=== PATIENT | female | born 1960 ===

== ENCOUNTER → 2016-11-27 | Day surgery (SDC) | payer OTHER ==
[2016-11-27] VITALS (12 sets, daily range): BP systolic 82–133; BP diastolic 16–79
[~2016-11-27] VITALS: Ht 157.5 cm; Wt 56.2 kg
[~2016-11-27] MED LIST: Alfentanil 2ml Inj ONE; Atropine Inj 1mg/10ml Syr IV PRN; Bupivacaine 0.25% Inj 30ml INJ ONE; Bupivacaine w/Epi 0.25% 30ml Vial INJ ONE; DiphenhydrAMINE 50mg/ml Inj IVP PRN; Duramorph PF 10mg/10ml amp IV ONE; GLIPIZIDE5 MG ORAL; Hydromorphone 0.5mg/0.5ml inj IVP PRN; Kenalog-40 1ml Vial ONE; Ketorolac 30mg Inj IV ONE; Ketorolac 30mg Inj IV PRN; Ketorolac 60mg Inj IV PRN; LANTUS SOL100 UNIT/1 SUBQ; LISINOPRIL10 MG ORAL; LORazepam Inj 2mg/ml 1ml IV PRN; LR 1000ml 1,000 ML IVLG SCH; LR 1000ml ONE; Labetalol 5mg/ml 20ml vial IV PRN; Lidocaine 1% 10mg/ml/Epi 0.005mg/ml 30ml vial INJ ONE; Lidocaine 1% MPF 10mg/ml 5ml ONE; METFORMIN HCL500 M1 ORAL; Meperidine 25mg/ml Inj IV PRN; Metoclopramide 10mg/2ml Inj IVP PRN; Midazolam 2mg/2ml Inj IVP PRN; Midazolam 2mg/2ml Inj ONE; Morphine Sulfate 2mg/ml Inj IVP PRN; Morphine Sulfate PF 10 ML ONE; NS Irrig 1000ml ONE; Norco 5mg/325mg tab ORAL PRN; Norco 7.5mg/325mg tab ORAL PRN; Oxycodone/Acetaminophen 5-325 ORAL PRN; Propofol 10mg/ml 20ml IV ONE; ceFAZolin 1gm/50ml Premix 50 ML IV ONE; celeBREX 200mg Cap **SURGERY PATIENTS ONLY ORAL ONE; fentaNYL 100 mcg/2 mL IV PRN; oxyCONTIN 20mg tab ORAL ONE
--- NOTE | 2016-11-27 06:48 | Anethesia Preoperative Eval ---
Anesthesia Pre-op PMH/ROS General Date of Evaluation: Nov 27, 2016 Time of Evaluation: 06:56 Anesthesiologist: Cleo ASA Score: ASA 3 Mallampati Score Class I : Soft palate, uvula, fauces, pillars visible Class II: Soft palate, uvula, fauces visible Class III: Soft palate, base of uvula visible Class IV: Only hard plate visible Mallampati Classification: Class I Surgeon: Colby Diagnosis: L Knee Pain Surgical Procedure: L Knee Arthroscopy Anesthesia History: none Family History: no anesthesia problems Allergies: Coded Allergies: No Known Allergies (Unverified , 11/25/16) Medications: see eMAR Past Medical History Endocrine: Reports: DM PSxH Narrative: YASEMIN Anesthesia Pre-op Phys. Exam Physician Exam Last Vital Signs Date Time Temp Pulse Resp B/P Pulse Ox O2 Delivery O2 Flow Rate FiO2 11/27/16 05:35 97.9 84 18 133/78 99 Room Air Constitutional: NAD Neurologic: CN 2-12 intact Cardiovascular: RRR Respiratory: CTA Gastrointestinal: S/NT/ND Airway Exam Mallampati Score: Class I MO: full ROM: full Teeth: intact Anesthesia Pre-op A/P Risk Assessment & Plan Assessment: ASA 3 Plan: GA, BIS Status Change Before Surgery: No Pre-Antibiotics Dru Grams Ancef IV Given Within 1 Hr of Incision: Yes Time Given: 07:11 Davis Gallo MD Nov 27, 2016 06:48
--- NOTE | 2016-11-27 06:53 | Immediate Post-Op Evaluation ---
Immediate Post-Op Evalulation Immediate Post-Op Evalulation Procedure: L Knee Arthroscopy Date of Evaluation: Nov 27, 2016 Time of Evaluation: 08:03 IV Fluids: 700 LR Blood Products: 0 Estimated Blood Loss: 12 Urinary Output: 0 Blood Pressure Systolic: 84 Blood Pressure Diastolic: 47 Pulse Rate: 82 Respiratory Rate: 16 O2 Sat by Pulse Oximetry: 99 Temperature (Fahrenheit): 97.3 Pain Score (1-10): 2 Nausea: No Vomiting: No Complications 0 Patient Status: awake, reacts, patent, extubated, none Hydration Status: adequate Dru Gram Ancef IV Given Within 1 Hr of Incision: Yes Time Given: 07:11 Davis Gallo MD Nov 27, 2016 06:53
--- NOTE | 2016-11-27 06:54 | 48 Hour Post Anesthesia Eval ---
Post Anesthesia Evaluation Procedure: L Knee Arthroscopy Date of Evaluation: Nov 27, 2016 Time of Evaluation: 10:24 Blood Pressure Systolic: 112 0: 74 Pulse Rate: 81 Respiratory Rate: 16 Temperature (Fahrenheit): 98.2 O2 Sat by Pulse Oximetry: 99 Airway: patent Nausea: No Vomiting: No Pain Intensity: 2 Hydration Status: adequate Cardiopulmonary Status: Stable Mental Status/LOC: patient returned to baseline Follow-up Care/Observations: 0 Post-Anesthesia Complications: 0 Follow-up care needed: ready to discharge Davis Gallo MD Nov 27, 2016 06:54
--- NOTE | 2016-11-27 07:07 | Pre-Procedure Note/Attestation ---
Pre-Procedure Note/Attestation Complete Prior to Procedure Planned Procedure: left Procedure Narrative: knee arthrscopy, possible menisectomy Indications for Procedure Pre-Operative Diagnosis: left knee internal derangment Attestation I attest that I discussed the nature of the procedure; its benefits; risks and complications; and alternatives (and the risks and benefits of such alternatives ), prior to the procedure, with the patient (or the patient's legal insurance claims representative). I attest that, if there was a reasonable possibility of needing a blood transfusion, the patient (or the patient's legal insurance claims representative) was given the [facility] standardized written summary, pursuant to the Mike Vilonia Blood Safety Act ([place] Health and Safety Code # 1645, as amended). I attest that I re-evaluated the patient just prior to the surgery and that there has been no change in the patient's H&P, except as documented below: TAYLER ROMANO Nov 27, 2016 07:07
--- NOTE | 2016-11-27 07:07 | Operative Note - PDOC ---
Operative Note Operative Note Pre-op Diagnosis: left knee internal derangment Procedure: left knee arthroscopy Post-op Diagnosis: same as pre-op plus Operative Findings: consistent w/pre-op dx studies Anesthesia: MAC Specimen: none Complications: none Condition: stable Estimated Blood Loss: none Implant(s) used?: TAYLER Mckenzie Nov 27, 2016 07:07
--- NOTE | 2016-11-27 17:28 | Operative Note - Dictated ---
DATE OF OPERATION: 11/27/2016 PREOPERATIVE DIAGNOSIS: Internal derangement, left knee, secondary to possible hypertrophic fat pad versus meniscal tear. POSTOPERATIVE DIAGNOSIS: Internal derangement left knee secondary to possible hypertrophic fat pad versus meniscal tear. PROCEDURES: 1. Left knee diagnostic arthroscopy. 2. Synovectomy of medial and lateral patellofemoral compartments. SURGEON: Agapito Bowman M.D. ANESTHESIA: MAC. INDICATION FOR PROCEDURE: The patient is pleasant female, who had a significant injury to her left knee. She subsequently continued to have anterior knee pain. She had an MRI, which showed some medial meniscal changes. Given the continued symptoms despite conservative treatment, she elected to undergo left knee diagnostic arthroscopy with possible meniscectomy and synovectomy. Risks, limitations, expectations and complications related to procedure were discussed in detail including infection, neurovascular damage, no improvement of pain, need for future surgery, etc. All questions were addressed. DESCRIPTION OF PROCEDURE: After informed consent was obtained, the patient was brought to the operating room and placed under monitored anesthesia control. Tourniquet was applied to left proximal thigh. Left leg was prepped and draped in a sterile manner. Time-out was performed. Under sterile conditions, 20 mL of 0.25% Marcaine plain injected to the left knee. Portal sites were injected with 1% lidocaine with epinephrine. Inferolateral stab incision was then made. Trocar was introduced into the knee joint. Of note, when introducing the trocar, there was significant resistance in going to the lateral compartment consistent with scar tissue of the lateral gutter. The camera was placed in the patellofemoral compartment. There was no significant chondral damage. There was hypertrophic synovial tissue in the retropatellar space. Medial compartment was entered and medial working portal was established. Synovectomy of the medial compartment was performed to better visualize the medial compartment. The meniscus was probed in its entirety, particularly the posterior horn with intrameniscal degeneration was noted on the MRI. It was a grade 3 intrameniscal degeneration, but did not extend to the surface. Once that was done, a shaver was placed in the intercondylar notch. Synovectomy was completed of the lateral compartment. Anterior cruciate ligament was probed and noted to be intact. The lateral compartment was entered and free of meniscal or chondral damage. Camera was then placed in the medial working portal. Synovectomy of the lateral gutter was completed. Camera was then repositioned in the lateral compartment and then synovectomy of the retropatellar space was completed. Once that was done, the instruments removed. Portal sites was closed with 3-0 Monocryl sutures with Intraarticular injection containing 0.25% Marcaine with epinephrine, 40 mg of Kenalog, and 30 mg of Toradol was injected. Tourniquet was deflated. The patient was awoken and taken to recovery room in stable condition. ESTIMATED BLOOD LOSS: None. COMPLICATIONS: None. SPECIMENS: None. Agapito Bowman M.D. DR: KARINA JOB#: [id number] CC:
== END | disposition home or self-care (01) ==
LOC: SUR 05:10
DX: M23.8X2 Other internal derangements of left knee (principal); M67.262 Synovial hypertrophy, not elsewhere classified, left lower leg; I10 Essential (primary) hypertension; E11.9 Type 2 diabetes mellitus without complications; Z79.4 Long term (current) use of insulin; Z79.84 Long term (current) use of oral hypoglycemic drugs; Z90.710 Acquired absence of both cervix and uterus
CPT/HCPCS: 29876; 82962; 97161; J0690; J1885; J2250; J2274; J2405; J2704; J2765; J3301; J3490; J7120; 94003; 94150